=== PATIENT | male | born 1980 | race Caucasian/White ===

== ENCOUNTER 2017-02-12 14:50 | Emergency (ER) | payer OTHER ==
[2017-02-12 14:55] VITALS: BP 157/88; PULSE 88; TEMP 98.1; BMI 35.8
[2017-02-12] MEDS ORDERED: NAPROXEN 500 MG TABLET (FP) PO ONE (15:19)
--- NOTE | 2017-02-12 15:19 | PDOC ---
History of Present Illness - General History Source: Patient Exam Limitations: No Limitations - History of Present Illness Initial Comments: 02/12/17 15:58 The patient is a 36 year old male, with a significant past medical history of prepatellar bursitis, who presents to the emergency department with, right knee pain s/p stepping out of his van this morning. The patient reports that this morning when stepping out of his van he experienced a pop and locking sensation in his right knee. The patient states the right knee pain has been progressively worse throughout the day up until ED arrival. The patient also reports a "fluid" like feeling in the posterior portion of the right knee. He denies numbness, tingling or loss of sensation. He denies recent falls or trauma. He denies any recent fevers, chills, headache or dizziness. He denies any recent nausea, vomit, diarrhea or constipation. He denies any recent chest pain or shortness of breath. Allergies: NKA Past surgical history: None reported. Primary Care Physician: Dr. Emily Juarez <Darrion Rinaldi - Last Filed: 02/12/17 16:05> <Dat Jimenez - Last Filed: 02/12/17 18:18> - General Chief Complaint: Injury Stated Complaint: RT KNEE PAIN Past History <Darrion Rinaldi - Last Filed: 02/12/17 16:05> - Past Medical History COPD: No Other medical history: RT PATELLA BURSITIS - Suicide/Smoking/Psychosocial Hx Smoking History: Current some day smoker Have you smoked in the past 12 months: Yes Number of Cigarettes Smoked Daily: 1 Information on smoking cessation initiated: Yes 'Breaking Loose' booklet given: 02/12/17 Hx Alcohol Use: (occasional) Drug/Substance Use Hx: No Substance Use Type: Alcohol <Dat Jimenez - Last Filed: 02/12/17 18:18> - Past Medical History Allergies/Adverse Reactions: Allergies Allergy/AdvReac Type Severity Reaction Status Date / Time No Known Allergies Allergy Verified 02/12/17 14:51 Home Medications: Ambulatory Orders Sulfamethoxazole/Trimethoprim [Bactrim Ds Tablet] 1 each PO BID #20 tablet 11/04 Review of Systems - Review of Systems Comments:: 02/12/17 16:08 ROS: A complete review of 10 out of 10 review of systems is taken and is negative apart from what is previously mentioned below and in the HPI. <Darrion Rinaldi - Last Filed: 02/12/17 16:05> *Physical Exam - Vital Signs Last Vital Signs Temp Pulse Resp BP Pulse Ox 98.1 F 88 18 157/88 97 02/12/17 14:50 02/12/17 14:50 02/12/17 14:50 02/12/17 14:50 02/12/17 14:50 - Physical Exam Comments: 02/12/17 16:09 Vitals: Triage vital signs reviewed General Appearance: No acute distress, well nourished, well developed Head: Atraumatic Neck: Supple; No nuchal rigidity Chest Wall: Nontender Cardiac: Regular rate and rhythm, no murmurs, no rubs, no gallops Lungs: Clear to auscultation bilateral, good air movement bilaterally Abdomen: Soft, nondistended, normal bowel sounds, nontender to palpation Extremities: +Fluid posterior to the right knee. Full range of motion to all extremities, no cyanosis, clubbing. Skin: Warm and dry, no rashes or lesions, no rash, no petechiae Neuro: AOX3; Cranial Nerves 2-12 grossly intact, Strength intact to all extremities, Sensation intact to all extremities. Psych: Normal mood, normal affect <Darrion Rinaldi - Last Filed: 02/12/17 16:05> - Vital Signs Last Vital Signs Temp Pulse Resp BP Pulse Ox 98.1 F 88 18 157/88 97 02/12/17 14:50 02/12/17 14:50 02/12/17 14:50 02/12/17 14:50 02/12/17 14:50 <Dat Jimenez - Last Filed: 02/12/17 18:18> ED Treatment Course - Medications Given in the ED: ED Medications Discontinued Medications Generic Name Dose Route Start Last Admin Trade Name Freq PRN Reason Stop Dose Admin Naproxen 500 mg 02/12/17 15:19 02/12/17 15:40 Naprosyn - PO 02/12/17 15:20 500 mg ONCE ONE Administration <Darrion Rinaldi - Last Filed: 02/12/17 16:05> Medical Decision Making - Medical Decision Making 02/12/17 18:18 X-ray findings as dictated. Patient placed in crutches. Made nonweightbearing. Follow-up with orthopedics next week Findings, the need for follow-up and strict return instructions discussed with patient. <Dat Jimenez - Last Filed: 02/12/17 18:18> *DC/Admit/Observation/Transfer - Attestations Scribe Attestion: 02/12/17 16:10 Documentation prepared by Darrion Rinaldi, acting as medical consultant for Dat Jimenez MD. <Darrion Rinaldi - Last Filed: 02/12/17 16:05> <Dat Jimenez - Last Filed: 02/12/17 18:18> Diagnosis at time of Disposition: Knee pain Qualifiers: Chronicity: acute Laterality: right Qualified Code(s): M25.561 - Pain in right knee - Discharge Dispostion Disposition: HOME Condition at time of disposition: Stable - Referrals Referrals: Emily Juarez [Primary Care Provider] - Ian Salas MD [Staff Physician] - - Patient Instructions Printed Discharge Instructions: DI for Knee Pain Additional Instructions: Ice knee 20 minutes on 20 minutes off for the next 3 days. Take 2 tabs Aleve twice a day for the next 3 days. Keep elevated and use crutches as much as possible while ambulating. If no improvement in pain after 3-4 days follow-up with orthopedics. No heavy lifting or walking at work while having knee pain. - Post Discharge Activity Forms/Work/School Notes: Back to Work
[2017-02-12] MEDS ORDERED: NAPROXEN 500 MG TABLET (FP) ONE (15:38)
== END 2017-02-12 16:05 | disposition home or self-care (01) ==
LOC: FER 14:50 → SUPCPDRO 14:50 → FER 16:05
DX: M25.561 Pain in right knee (principal); X58.XXXA Exposure to other specified factors, initial encounter; Y93.89 Activity, other specified; Y92.9 Unspecified place or not applicable; F17.210 Nicotine dependence, cigarettes, uncomplicated
CPT/HCPCS: 73562-TC-RT; 99282-25